=== PATIENT | male | born 1950 | race Caucasian/White ===

== ENCOUNTER 2023-07-29 10:42 | Day surgery (SDC) | payer OTHER ==
[~2023-07-29] VITALS: Ht 182.9 cm; Wt 81.8 kg
[~2023-07-29 10:42] MED LIST: ATOR40TA PO; Aspir 8181 MG PO; HYDCHL25 PO; LOSA25 PO; METO50 PO; NITR.4SL SL; SERT100 PO
--- NOTE | 2023-07-29 11:04 | NUR ---
07/29/23 1104 Lisa Beaver TETRACAINE PLACED IN LEFT EYE AT 1057 PLEDGET PLACED IN LEFT EYE AT 1102
[2023-07-29 12:07] VITALS: BP 119/66
== END 2023-07-29 12:13 | disposition home or self-care (01) ==
LOC: ORSCSDS 10:42
PROVIDERS: Ophthalmology
PROC: 08RK3JZ Replacement of Left Lens with Synthetic Substitute, Percutaneous Approach (ICD-10-PCS; principal; 2023-07-29 12:00)
DX: H25.13 Age-related nuclear cataract, bilateral (principal); H52.202 Unspecified astigmatism, left eye; I10 Essential (primary) hypertension; I25.10 Atherosclerotic heart disease of native coronary artery without angina pectoris; F41.9 Anxiety disorder, unspecified; Z79.899 Other long term (current) drug therapy; Z79.82 Long term (current) use of aspirin; Z87.891 Personal history of nicotine dependence
CPT/HCPCS: J2250; J3010; J3301; J7040; V2632

== ENCOUNTER 2023-08-05 10:16 | Day surgery (SDC) | payer OTHER ==
[~2023-08-05] VITALS: Ht 182.9 cm; Wt 81.2 kg
[~2023-08-05 10:16] MED LIST changes: +Balanced Salt Epinephrine Irrigation Solution 500 mL IR SCH; +Lidocaine HCl/Pf 1% 5 ML VIAL XX SCH; +Moxifloxacin HCL 0.5 MG/0.1 ML 0.4MLSYR RIGHTEYE SCH; +NS 500 ML IV ONE; +PHENYLEPHRINE\\TROPICAMIDE\\TETRACAINE OPHTHALMIC DILATING SOLN RIGHTEYE PRN; +Povidone-Iodine 450 DROP/30 ML Solution ONE; +Povidone-Iodine 450 DROP/30 ML Solution RIGHTEYE SCH; +Triamcinolone Inj Susp 40 MG / ML 1ML Vial INJ SCH; +Triamcinolone Inj Susp 40 MG / ML 1ML Vial ONE
[2023-08-05] MEDS ORDERED: NS 500 ML IV ONE ×2 (10:31)
--- NOTE | 2023-08-05 10:40 | NUR ---
08/05/23 1040 Caroline Montero IN AT 1032 BOLA IN AT 1033 CALL LIGHT AT BEDSIDE
[2023-08-05] MEDS ORDERED: Midazolam HCl 1MG / ML 2ML Vial ONE (11:12)
[2023-08-05] MEDS ORDERED: FentaNYL Citrate 50 MCG/ML 2 ML Injection ONE (11:12)
[2023-08-05] MEDS ORDERED: Tetracaine HCl 0.5% Opth Soln 15 ml RIGHTEYE ONE (11:14)
[2023-08-05 11:39] VITALS: BP 131/84
== END 2023-08-05 11:55 | disposition home or self-care (01) ==
LOC: ORSCSDS 10:16
PROVIDERS: Ophthalmology
PROC: 08RJ3JZ Replacement of Right Lens with Synthetic Substitute, Percutaneous Approach (ICD-10-PCS; principal; 2023-08-05 11:30)
DX: H25.11 Age-related nuclear cataract, right eye (principal); Z96.1 Presence of intraocular lens; H52.201 Unspecified astigmatism, right eye; I10 Essential (primary) hypertension; F41.9 Anxiety disorder, unspecified; Z95.1 Presence of aortocoronary bypass graft; Z79.82 Long term (current) use of aspirin; Z79.899 Other long term (current) drug therapy
CPT/HCPCS: J2250; J3010; J3301; J7040; V2632